=== PATIENT | male | born 1960 | race African-American/Black ===

== ENCOUNTER 2017-05-21 14:26 | Emergency (ER) | payer BC ==
[2017-05-21 14:31] VITALS: BP 159/79; PULSE 75; RESP 20; TEMP 98.1
--- NOTE | 2017-05-21 14:40 | ED ---
General Adult HPI - General Chief complaint: Extremity Injury, Upper Stated complaint: Fall/Shoulder Pain Time Seen by Provider: 05/21/17 14:34 Source: patient, RN notes reviewed Mode of arrival: ambulatory Limitations: no limitations - History of Present Illness Initial comments: 57 yo male presents to the ER with a chief complaint of left shoulder pain. He states he slipped on the steps and landed onto his left shoulder last night. He continues to have pain today so he thought that he should be seen. He states he did not hit his head he did not pass out. There is no loss of consciousness with the incident. He states that he was concerned due to the continued pain and pain when he tries to move the shoulder increased pain thought that he should be seen. He points to the outside of the shoulder with the pain is located. Patient states that there is no radiation and no other symptoms.Patient denies any recent fever, chills, shortness of breath, chest pain, back pain, abdominal pain, nausea vomiting, numbness or tingling, dysuria or hematuria, constipation or diarrhea, headaches or visual changes, or any other current symptoms. - Related Data Home Medications Medication Instructions Recorded Confirmed Losartan/Hydrochlorothiazide 1 each PO DAILY 04/18/16 04/18/16 [Losartan-Hctz 100-12.5 mg Tab] Previous Rx's Medication Instructions Recorded Losartan/Hydrochlorothiazide 1 each PO DAILY #20 tab 04/18/16 [Losartan-Hctz 100-12.5 mg Tab] Allergies Allergy/AdvReac Type Severity Reaction Status Date / Time Penicillins Allergy Swelling Verified 05/21/17 14:31 Review of Systems ROS Statement: Those systems with pertinent positive or pertinent negative responses have been documented in the HPI. ROS Other: All systems not noted in ROS Statement are negative. Past Medical History Past Medical History: Asthma, Hypertension, Osteoarthritis (OA) History of Any Multi-Drug Resistant Organisms: None Reported Additional Past Surgical History / Comment(s): HEMMORROIODS Past Psychological History: No Psychological Hx Reported Smoking Status: Never smoker Past Alcohol Use History: None Reported Past Drug Use History: None Reported General Exam - General Exam Comments Initial Comments: General: The patient is awake and alert, in no distress, and does not appear acutely ill. Neck: The neck is supple, there is no tenderness. Cardiovascular: There is a regular rate and rhythm. No murmur, rub or gallop is appreciated. Respiratory: Lungs are clear to auscultation, respirations are non-labored, breath sounds are equal. No wheezes, stridor, rales, or rhonchi. Musculoskeletal: Sensation intact with 2+ pulses throughout the right left upper extremity. Frontal motion of left elbow and left shoulder. No point bony tenderness. 5 out of 5 muscle strength testing throughout. Neurological: CN II-XII intact, There are no obvious motor or sensory deficits. Coordination appears grossly intact. Speech is normal. Skin: Skin is warm and dry and no rashes or lesions are noted. Psychiatric: Normal mood and affect. Limitations: no limitations Course Vital Signs 05/21/17 14:29 Temperature 98.1 F Pulse Rate 75 Respiratory 20 Rate Blood Pressure 159/79 O2 Sat by Pulse 100 Oximetry Medical Decision Making - Medical Decision Making 57-year-old male presents for shoulder pain after fall. This time x-rays reviewed and negative. This time we discussed Motrin Tylenol ice. We discussed return parameters and follow-up and all questions. Patient stated he understood and he is given this plan. This time we'll be discharged. - Radiology Data Radiology results: report reviewed, image reviewed Disposition Clinical Impression: Sprain of left shoulder Disposition: HOME SELF-CARE Condition: Stable Instructions: Shoulder Sprain (ED) Additional Instructions: Please use medication as discussed. Please follow up with family doctor if symptoms have not improved over the next two days. Please return to the emergency room if your symptoms increase or worsen or for any other concerns. Referrals: Kiersten Oswald MD [Primary Care Provider] - 1-2 days Time of Disposition: 15:11
--- NOTE | 2017-05-21 15:07 | XR ---
EXAMINATION TYPE: XR shoulder complete LT DATE OF EXAM: 05/21/2017 CLINICAL HISTORY: Generalized pain after fall injury. TECHNIQUE: Three views of the left shoulder are obtained. COMPARISON: None. FINDINGS: There is no acute fracture/dislocation evident in the left shoulder. There is moderate fina nt space loss and mild to moderate spurring inferiorly left acromioclavicular joint. There is some sp urring from the inferior margin of the acromion. On the externally rotated view there appears to be o ld Hill-Sachs deformity involving superolateral humeral head. Correlate for remote dislocation histor y. Inferior glenoid is intact. The visualized ribs are intact and unremarkable. IMPRESSION: There is no acute fracture or dislocation in the left shoulder.
== END 2017-05-21 15:18 | disposition home or self-care (01) ==
LOC: EC 14:26
DX: S43.402A Unspecified sprain of left shoulder joint, initial encounter (principal); I10 Essential (primary) hypertension; Z79.899 Other long term (current) drug therapy; Z88.0 Allergy status to penicillin; W10.9XXA Fall (on) (from) unspecified stairs and steps, initial encounter; Y92.009 Unspecified place in unspecified non-institutional (private) residence as the place of occurrence of the external cause
CPT/HCPCS: 99283

== ENCOUNTER 2022-05-20 15:02 | Emergency (ER) | payer BC ==
--- NOTE | 2022-05-20 15:21 | ED ---
General Adult HPI <Annelise Miller - Last Filed: 05/20/22 23:34> <Rishabh Ornelas - Last Filed: 05/21/22 07:21> - General Stated complaint: Covid +, Diarrhea - History of Present Illness Initial comments: Patient diagnosis COVID-19 6 days ago at home. Patient reports one to 2 episodes of diarrhea a day, nonbloody. No recent travel, no recent antibiotic use. Reports decreased oral intake due to nausea when eating. He did vomit 2 times 2 and the beginning of his illness and has not vomited in several days. Patient overall feels weak, No chest pain, shortness of breath, abdominal pain. (Annelise Miller) Dictation was produced using [employer] dictation software. please excuse any grammatical, word or spelling errors. Medical screening exam: 62-year-old male presents with the emergency department for concerns of COVID-19. Patient has been symptomatic with fevers, constitutional symptoms and diarrhea for the last 6 days. Patient is not vaccinated for COVID-19. Patient well-appearing at the bedside. He has normal gait does not appear to be any significant distress. (Rishabh Ornelas) - Related Data Home Medications Medication Instructions Recorded Confirmed Losartan/Hydrochlorothiazide 1 each PO DAILY 04/18/16 04/18/16 [Losartan-Hctz 100-12.5 mg Tab] Previous Rx's Medication Instructions Recorded Losartan/Hydrochlorothiazide 1 each PO DAILY #20 tab 04/18/16 [Losartan-Hctz 100-12.5 mg Tab] Diphenox-Atrop 2.5-0.025 mg 1 - 2 tab PO QID PRN 3 Days #24 tab 05/20/22 [Lomotil] Ondansetron Odt [Zofran Odt] 4 mg PO Q8HR PRN #6 tab 05/20/22 Allergies Allergy/AdvReac Type Severity Reaction Status Date / Time Penicillins Allergy Swelling Verified 05/21/17 14:31 Review of Systems ROS Other: All systems not noted in ROS Statement are negative. <Annelise Miller - Last Filed: 05/20/22 23:34> ROS Other: All systems not noted in ROS Statement are negative. <Rishabh Ornelas - Last Filed: 05/21/22 07:21> ROS Statement: Those systems with pertinent positive or pertinent negative responses have been documented in the HPI. Past Medical History Past Medical History: Asthma, Hypertension, Osteoarthritis (OA) History of Any Multi-Drug Resistant Organisms: None Reported Additional Past Surgical History / Comment(s): HEMMORROIODS Past Psychological History: No Psychological Hx Reported Past Alcohol Use History: None Reported Past Drug Use History: None Reported <Rishabh Ornelas - Last Filed: 05/21/22 07:21> General Exam General appearance: alert, in no apparent distress Head exam: Present: atraumatic, normocephalic, normal inspection ENT exam: Present: normal oropharynx, mucous membranes moist Respiratory exam: Present: normal lung sounds bilaterally. Absent: respiratory distress, wheezes, rales, rhonchi, stridor Cardiovascular Exam: Present: regular rate, normal rhythm, normal heart sounds. Absent: systolic murmur, diastolic murmur, rubs, gallop, clicks GI/Abdominal exam: Present: soft, normal bowel sounds. Absent: distended, tenderness, guarding, rebound, rigid Neurological exam: Present: alert, oriented X3, CN II-XII intact Psychiatric exam: Present: normal affect, normal mood Skin exam: Present: warm, dry, intact, normal color. Absent: rash <Annelise Miller - Last Filed: 05/20/22 23:34> Course Vital Signs 05/20/22 05/20/22 15:30 18:22 Temperature 98 F Pulse Rate 98 80 Respiratory 16 18 Rate Blood Pressure 158/90 119/75 O2 Sat by Pulse 97 97 Oximetry Medical Decision Making - Lab Data Result diagrams: 05/20/22 15:56 05/20/22 15:56 <Annelise Miller - Last Filed: 05/20/22 23:34> - Lab Data Result diagrams: 05/20/22 15:56 05/20/22 15:56 <Rishabh Ornelas - Last Filed: 05/21/22 07:21> - Medical Decision Making Was pt. sent in by a medical professional or institution (, PA, FIELD CONTACT TECHNICIAN, urgent care, hospital, or detention...) When possible be specific @ -[No] Did you speak to anyone other than the patient for history (EMS, parent, family, police, friend...)? What history was obtained from this source @ -[No] Did you review nursing and triage notes (agree or disagree)? Why? @ -[I reviewed and agree with nursing and triage notes] Were old charts reviewed (outside hosp., previous admission, EMS record, old EKG, old radiological studies, urgent care reports/EKG's, detention records)? Report findings @ -[No old charts were reviewed] Differential Diagnosis (chest pain, altered mental status, abdominal pain women, abdominal pain men, vaginal bleeding, weakness, fever, dyspnea, syncope, headache, dizziness, GI bleed, back pain, seizure, CVA, palpatations, mental health)? @ -[not applicable] EKG interpreted by me (3pts min.). @ -[As above] X-rays interpreted by me (1pt min.). @ -[None done] CT interpreted by me (1pt min.). @ -[None done] U/S interpreted by me (1pt. min.). @ -[None done] What testing was considered but not performed or refused? (CT, X-rays, U/S, labs)? Why? @ -Considered chest xray however no SOB or cough, What meds were considered but not given or refused? Why? @ -[None] Did you discuss the management of the patient with other professionals (professionals i.e. , PA, FIELD CONTACT TECHNICIAN, lab, RT, psych nurse, hospital social worker, bleacher operator, teacher, county health officer, piano case and bench assembler)? Give summary @ -[No] Was smoking cessation discussed for >3mins.? @ -[No] Was critical care preformed (if so, how long)? @ -[No] Were there social determinants of health that impacted care today? How? (Homelessness, low income, unemployed, alcoholism, drug addiction, transportation, low edu. Level, literacy, decrease access to med. care, usp, rehab)? @ -[No] Was there de-escalation of care discussed even if they declined (Discuss DNR or withdrawal of care, Hospice)? DNR status @ -[No] What co-morbidities impacted this encounter? (DM, HTN, Smoking, COPD, CAD, Cancer, CVA, ARF, Chemo, Hep., AIDS, mental health diagnosis, sleep apnea, morbid obesity)? @ -[None] Was patient admitted / discharged? Hospital course, mention meds given and route, prescriptions, significant lab abnormalities, going to OR and other pertinent info. @ -This is a 62-year-old male who presents with diarrhea and weakness after recent covid diagnosis at home. Patient well appearing, blood pressure within acceptable limits. Afebrile. Laboratory studies obtained. There is evidence of dehydration with creatinine mildly elevated at 1.31. Patient is hypokalemic at 3.0. Covid-19 detected. Patient given fluid bolus and replenished with potassium. Results discussed with patient and family. Patient does not have history of hypokalemia-I suspect low potassium related to decreased oral intake and diarrhea. Patient given zofran and lomotil. He was able to tolerate crackers in the ED without furrther episodes of vomiting and dairrhea. Patient requesting to go home-this is reasonable with strict return parameters. Patient to return if there is increased vomiting/diarrhea. He is encouraged to increase oral intake. Will send him home with zofran and lomotil. He is to follow up with PCP for repeat potassium level. Undiagnosed new problem with uncertain prognosis? @ -[No] Drug Therapy requiring intensive monitoring for toxicity (Heparin, Nitro, Insulin, Cardizem)? @ -[No] Were any procedures done? @ -[No] Diagnosis/symptom? @ -[default] Acute, or Chronic, or Acute on Chronic? @ -hypokalemia Uncomplicated (without systemic symptoms) or Complicated (systemic symptoms)? @ -uncomplicated Side effects of treatment? @ -[No] Exacerbation, Progression, or Severe Exacerbation? @ -[No] Poses a threat to life or bodily function? How? (Chest pain, [place], [place], pneumonia, PE, COPD, DKA, ARF, appy, cholecystitis, CVA, Diverticulitis, Homicidal, Suicidal, threat to staff... and all critical care pts) @ -[No] Diagnosis/symptom? @ -covid-19 Acute, or Chronic, or Acute on Chronic? @ -acute Uncomplicated (without systemic symptoms) or Complicated (systemic symptoms)? @ -uncomplicated Side effects of treatment? @ -[none] Exacerbation, Progression, or Severe Exacerbation] @ -[no] Poses a threat to life or bodily function? @ -[no] Dr. Ornelas is my attending. (Annelise Miller) - Lab Data Lab Results 05/20/22 05/20/22 05/20/22 Range/Units 15:56 15:56 15:56 WBC 7.0 (3.8-10.6) k/uL RBC 5.62 (4.30-5.90) m/uL Hgb 16.2 (13.0-17.5) gm/dL Hct 45.8 (39.0-53.0) % MCV 81.6 (80.0-100.0) fL MCH 28.9 (25.0-35.0) pg MCHC 35.4 (31.0-37.0) g/dL RDW 12.2 (11.5-15.5) % Plt Count 202 (150-450) k/uL MPV 7.2 Neutrophils % 84 % Lymphocytes % 10 % Monocytes % 4 % Eosinophils % 1 % Basophils % 1 % Neutrophils # 5.9 (1.3-7.7) k/uL Lymphocytes # 0.7 L (1.0-4.8) k/uL Monocytes # 0.3 (0-1.0) k/uL Eosinophils # 0.1 (0-0.7) k/uL Basophils # 0.0 (0-0.2) k/uL Sodium 140 (137-145) mmol/L Potassium 3.0 L (3.5-5.1) mmol/L Chloride 99 (98-107) mmol/L Carbon Dioxide 26 (22-30) mmol/L Anion Gap 15 mmol/L BUN 19 (9-20) mg/dL Creatinine 1.31 H (0.66-1.25) mg/dL Est GFR (CKD-EPI)AfAm 68 (>60 ml/min/1.73 sqM) Est GFR (CKD-EPI)NonAf 59 (>60 ml/min/1.73 sqM) Glucose 107 H (74-99) mg/dL Calcium 9.1 (8.4-10.2) mg/dL Magnesium 2.4 H (1.6-2.3) mg/dL Total Bilirubin 1.1 (0.2-1.3) mg/dL AST 26 (17-59) U/L ALT 20 (4-49) U/L Alkaline Phosphatase 90 (38-126) U/L Total Protein 8.0 (6.3-8.2) g/dL Albumin 4.6 (3.5-5.0) g/dL Urine Color Urine Appearance (Clear) Urine pH (5.0-8.0) Ur Specific [place] (1.001-1.035) Urine Protein (Negative) Urine Glucose (UA) (Negative) Urine Ketones (Negative) Urine Blood (Negative) Urine Nitrite (Negative) Urine Bilirubin (Negative) Urine Urobilinogen (<2.0) mg/dL Ur Leukocyte Esterase (Negative) Urine RBC (0-5) /hpf Urine WBC (0-5) /hpf Urine Mucus (None) /hpf Influenza Type A (PCR) Not Detected (Not Detectd) Influenza Type B (PCR) Not Detected (Not Detectd) RSV (PCR) Not Detected (Not Detectd) SARS-CoV-2 (PCR) Detected A (Not Detectd) 05/20/22 Range/Units 15:58 WBC (3.8-10.6) k/uL RBC (4.30-5.90) m/uL Hgb (13.0-17.5) gm/dL Hct (39.0-53.0) % MCV (80.0-100.0) fL MCH (25.0-35.0) pg MCHC (31.0-37.0) g/dL RDW (11.5-15.5) % Plt Count (150-450) k/uL MPV Neutrophils % % Lymphocytes % % Monocytes % % Eosinophils % % Basophils % % Neutrophils # (1.3-7.7) k/uL Lymphocytes # (1.0-4.8) k/uL Monocytes # (0-1.0) k/uL Eosinophils # (0-0.7) k/uL Basophils # (0-0.2) k/uL Sodium (137-145) mmol/L Potassium (3.5-5.1) mmol/L Chloride (98-107) mmol/L Carbon Dioxide (22-30) mmol/L Anion Gap mmol/L BUN (9-20) mg/dL Creatinine (0.66-1.25) mg/dL Est GFR (CKD-EPI)AfAm (>60 ml/min/1.73 sqM) Est GFR (CKD-EPI)NonAf (>60 ml/min/1.73 sqM) Glucose (74-99) mg/dL Calcium (8.4-10.2) mg/dL Magnesium (1.6-2.3) mg/dL Total Bilirubin (0.2-1.3) mg/dL AST (17-59) U/L ALT (4-49) U/L Alkaline Phosphatase (38-126) U/L Total Protein (6.3-8.2) g/dL Albumin (3.5-5.0) g/dL Urine Color Yellow Urine Appearance Clear (Clear) Urine pH 6.0 (5.0-8.0) Ur Specific [place] 1.015 (1.001-1.035) Urine Protein 1+ H (Negative) Urine Glucose (UA) Negative (Negative) Urine Ketones 2+ H (Negative) Urine Blood Trace H (Negative) Urine Nitrite Negative (Negative) Urine Bilirubin Negative (Negative) Urine Urobilinogen 3.0 (<2.0) mg/dL Ur Leukocyte Esterase Negative (Negative) Urine RBC <1 (0-5) /hpf Urine WBC 1 (0-5) /hpf Urine Mucus Rare H (None) /hpf Influenza Type A (PCR) (Not Detectd) Influenza Type B (PCR) (Not Detectd) RSV (PCR) (Not Detectd) SARS-CoV-2 (PCR) (Not Detectd) Disposition Is patient prescribed a controlled substance at d/c from ED?: No Time of Disposition: 18:04 <Annelise Miller - Last Filed: 05/20/22 23:34> <Rishabh Ornelas - Last Filed: 05/21/22 07:21> Clinical Impression: Hypokalemia, COVID-19 Disposition: HOME SELF-CARE Condition: Good Instructions (If sedation given, give patient instructions): Potassium Content of Foods List (ED), Hypokalemia (ED) Additional Instructions: Take medication as directed. Please increase oral intake for more potassium. Follow-up with primary care provider in one to 2 days for repeat potassium level. Return to emergency department if you experience new, concerning, or worsening symptoms. Prescriptions: Diphenox-Atrop 2.5-0.025 mg [Lomotil] 1 - 2 tab PO QID PRN 3 Days #24 tab PRN Reason: Diarrhea Ondansetron Odt [Zofran Odt] 4 mg PO Q8HR PRN #6 tab PRN Reason: Nausea Referrals: Kiersten Oswald MD [Primary Care Provider] - 1-2 days
[2022-05-20 15:33] VITALS: TEMP 98
[2022-05-20] MEDS ORDERED: SODIUM CHLORIDE 0.9% 1,000 ML IV STA (15:36)
[2022-05-20] MEDS ORDERED: DIPHENOX-ATROP 2.5-0.025 MG 1 EACH TAB PO STA (15:43)
[2022-05-20] MEDS ORDERED: ONDANSETRON 4 MG/2 ML VIAL IVP STA (15:51)
[2022-05-20 16:13] LABS: Basophils % (A) 1 %; Eosinophils # (A) 0.1 k/uL (0-0.7); Eosinophils % (A) 1 %; HCT 45.8 % (39.0-53.0); HGB 16.2 gm/dL (13.0-17.5); Lymphocytes # (A) 0.7 k/uL (1.0-4.8); Lymphocytes % (A) 10 %; MCH 28.9 pg (25.0-35.0); MCHC 35.4 g/dL (31.0-37.0); MCV 81.6 fL (80.0-100.0); Mean Platelet Volume 7.2; Monocytes # (A) 0.3 k/uL (0-1.0); Monocytes % (A) 4 %; Neutrophils # (A) 5.9 k/uL (1.3-7.7); Neutrophils % (A) 84 %; Platelet Count 202 k/uL (150-450); RBC 5.62 m/uL (4.30-5.90); RDW 12.2 % (11.5-15.5)
[2022-05-20 16:14] LABS: Appearance,Urine Clear (Clear); Bilirubin,Urine Negative (Negative); Blood,Urine Trace (Negative); Color,Urine Yellow; Glucose,Urine (UA) Negative (Negative); Ketones,Urine 2+ (Negative); Leukocyte Esterase,Urine Negative (Negative); Mucus,Urine Rare /hpf; Nitrite,Urine Negative (Negative); Protein,Urine 1+ (Negative); RBC,Urine <1 /hpf (0-5); Specific Gravity,Urine 1.015 (1.001-1.035); WBC,Urine 1 /hpf (0-5)
[2022-05-20 16:29] LABS: Albumin 4.6 g/dL (3.5-5.0); Calcium 9.1 mg/dL (8.4-10.2); Magnesium 2.4 mg/dL (1.6-2.3); Total Bilirubin 1.1 mg/dL (0.2-1.3)
[2022-05-20] MEDS ORDERED: POTASSIUM CHLORIDE ER 20 MEQ TAB.ER PO STA (16:45)
[2022-05-20 18:23] VITALS: BP 119/75; PULSE 80; RESP 18
== END 2022-05-20 18:27 | disposition home or self-care (01) ==
LOC: EC 15:02
DX: U07.1 COVID-19 (principal); E87.6 Hypokalemia; I10 Essential (primary) hypertension; J45.909 Unspecified asthma, uncomplicated; M19.90 Unspecified osteoarthritis, unspecified site; Z79.899 Other long term (current) drug therapy; Z88.0 Allergy status to penicillin
CPT/HCPCS: 36415; 80053; 83735; 85025; 81001; 87636; 99284; 96374; 96361; J2405

== ENCOUNTER → 2022-05-22 | Outpatient (CLI) | payer BC ==
[2022-05-22 15:04] LABS: African American GFR (CKD) 68.3 (60.0-200.0); Anion Gap 12.4 mmol/L (10.00-18.00); Blood Urea Nitrogen 11.4 mg/dL (9.0-27.0); Carbon Dioxide 25.6 mmol/L (20.0-27.5); Non-African American GFR(CKD) 58.9 (60.0-200.0); Potassium 3.1 mmol/L (3.5-5.5)
== END | disposition home or self-care (01) ==
LOC: LABWHC1 10:24
PROVIDERS: ATTEND Internal Medicine
DX: E78.6 Lipoprotein deficiency (principal)
CPT/HCPCS: 36415; 80051; 82565; 84520